=== PATIENT | male | born 1950 | race African-American/Black ===

== ENCOUNTER 2023-06-18 14:07 | Emergency (ER) | payer MEDICARE, SELFPAY ==
--- NOTE | ~2023-06-18 | XR_ITS ---
EXAMINATION: XR chest 1V portable DATE: 06/18/2023 14:44 INDICATION: Chest pain. TECHNIQUE: A single frontal view of the chest was obtained. COMPARISON: None. FINDINGS: There is no pneumonia, pleural effusion, or pneumothorax. The heart size is normal. IMPRESSION: 1. No acute cardiopulmonary disease. Reviewed, dictated and finalized at location E. [facility]
[2023-06-18 14:09] VITALS: BP 150/94; PULSE 56; RESP 17; TEMP 36.7; O2SAT 100
--- NOTE | 2023-06-18 14:17 | ECG_ITS ---
Measurements Intervals [place] Rate: 53 P: 44 IN: 157 QRS: 5 QRSD: 89 T: 26 QT: 470 QTc: 443 Interpretive Statements SINUS BRADYCARDIA VOLTAGE CRITERIA FOR LVH BASELINE WANDER- I, II, AVR, AVL, AVF, V3-V6 BORDERLINE ECG NO PREVIOUS ECG AVAILABLE FOR COMPARISON Electronically Signed On 06-18-2023 14:26:08 GAMBRELER HELPER by Jhony Pearce D.O.
[2023-06-18 14:20] VITALS: PULSE 56
--- NOTE | 2023-06-18 14:25 | ED.GENADULT ---
HPI - General Adult General Chief complaint: Chest Pain <Jose Elias Sheridan PA-C - Last Filed: 06/18/23 15:24> Stated complaint: chest discomfort <Jose Elias Sheridan PA-C - Last Filed: 06/18/23 15:24> Time Seen by Provider: 06/18/23 14:08 <Jose Elias Sheridan PA-C - Last Filed: 06/18/23 15:24> Source: patient <MANISH Zhong Last Filed: 06/18/23 15:24> Mode of arrival: ambulatory <MANISH Zhong Last Filed: 06/18/23 15:24> Limitations: no limitations <MANISH Zhong Last Filed: 06/18/23 15:24> History of Present Illness HPI narrative: This is a 72-year-old male who presents to the ED via EMS from retirement with chief complaint of chest pain. Reports that he was incarcerated about 4 hours ago for stealing steaks. Reports that he started having chest pain and feeling that his blood sugar may be low. Patient reports substance use with history of using IV heroin, fentanyl, smoking cocaine, marijuana and doing ?everything.? Patient reports that he last smoked crack or did cocaine a on of this week, 2 days ago. Today states the pain is in the left chest and comes and goes. Described as a sharp pain. No association with exertion, syncope or vomiting. Denies diaphoresis. Denies any history of heart disease. Patient reports has history of liver disease. Patient reports he was seen another facility yesterday for the symptoms new discharged. He had subsequent improvement of symptoms prior to arriving today. Denies any recent fevers, chills, cough, nausea, vomiting or abdominal pain. Denies back pain, numbness, weakness. <MANISH Zhong Last Filed: 06/18/23 15:24> Review of Systems Review of Systems: All systems as dictated in HPI <MANISH Zhong Last Filed: 06/18/23 15:24> Exam Narrative: GENERAL: Well-appearing, well-nourished, and in no acute distress. HEAD: Normocephalic, atraumatic. EYES: PERRLA and EOMI. Scleral icterus present ENT: Nares clear, no rhinorrhea or epistaxis. Mucous membranes moist. Oropharynx without tonsillar hypertrophy exudate or other lesions. NECK: Supple. No adenopathy or masses. CHEST: No respiratory distress. Clear to auscultation. No wheezes rales or rhonchi HEART: Regular rate and rhythm. No murmur heard. Normal peripheral pulses. ABDOMEN: Soft, nontender, nondistended, normal active bowel sounds. MSK: Normal range of motion. No edema. SKIN: Warm, dry, no rash. NEURO: Alert and oriented x3. No focal deficits. PSYCH: Normal mood and affect. <Jose Elias Sheridan PA-C - Last Filed: 06/18/23 15:24> Course MANAGER NET/PA Physician Supervision I did review initial EKG dated 06/18/2023 at 2:14 p.m.. There was some initial concern for the appearance of multiple ST segments particularly in the precordial leads though equivocal with baseline wander. Ventricular rate is 53, consistent with sinus bradycardia. MA interval 157. QRS 89. QT/QTC 470/453. I did request that a repeat EKG be performed within the next 15 minutes and sent a picture of the original EKG 2 lockstitch waistline joiner on-call Dr. Guadarrama who does concur that this does not have the appearance of a STEMI. Repeat EKG is performed and reviewed which does not demonstrate these findings. Discussed with Jose Elias ([email or web address]). I am later informed that patient left without completing treatment/work up. I did not personally examine the patient. <Diane Quinn MD - Last Filed: 06/18/23 22:34> Vital Signs Vital signs: Vital Signs Temperature 98.0 F 06/18/23 14:09 Pulse Rate 56 L 06/18/23 14:09 Respiratory Rate 17 06/18/23 14:09 Blood Pressure 150/94 H 06/18/23 14:09 Pulse Oximetry 100 06/18/23 14:09 Oxygen Delivery Room Air 06/18/23 14:09 Temperature 98.0 F 06/18/23 14:09 Pulse Rate 56 L 06/18/23 14:20 Respiratory Rate 17 06/18/23 14:09 Blood Pressure 150/94 H 06/18/23 14:09 Pulse Oximetry 100 06/18/23 14:09 Oxygen Delivery Room Air 06/18/23
--- NOTE | 2023-06-18 14:35 | ECG_ITS ---
Measurements Intervals [place] Rate: 57 P: 54 [place]: 162 QRS: 1 QRSD: 90 T: 7 QT: 482 QTc: 470 Interpretive Statements SINUS BRADYCARDIA ATRIAL AND VENTRICULAR PREMATURE COMPLEXES LEFT VENTRICULAR HYPERTROPHY BORDERLINE T WAVE ABNORMALITY- INFERIOR LEADS BASELINE ARTIFACT- AVR, AVL, AVF, V3 BORDERLINE ECG COMPARED TO ECG 06/18/2023 14:14:19 NO SIGNIFICANT CHANGES Electronically Signed On 06-19-2023 9:38:12 CDT by Jhony Pearce D.O.
[2023-06-18 14:50] LABS: Basophils Percent Auto 0.4 % (0.2-1.2); Eosinophils Absolute Auto 0.1 K/mm3 (0-0.3); Eosinophils Percent Auto 0.7 % (0-4.4); Hematocrit 35.5 % (42.0-52.0); Hemoglobin 11.1 g/dL (14.0-18.0); Immature Granulocyte Absolute 0.05 K/mm3 (0.00-0.031); Immature Granulocyte Percent A 0.7 % (0-0.5); Immature Platelet Fraction Pct 13.1 % (0.9-11.2); Lymphocytes Absolute Auto 1.95 K/mm3 (0.9-3.2); Lymphocytes Percent Auto 28.7 % (18.3-44.2); Mean Corpuscular HGB Conc 31.3 g/dl (32-36); Mean Corpuscular Hemoglobin 23.7 pg (26-34); Mean Corpuscular Volume 75.7 fl (80-100); Monocytes Absolute Auto 0.5 K/mm3 (0.1-0.6); Monocytes Percent Auto 7.2 % (2.6-8.5); Neutrophils Absolute Auto 4.2 K/mm3 (1.3-6.7); Neutrophils Percent Auto 62.3 % (45.5-73.1); Platelet Count Result 86 k/mm3 (150-375); Red Blood Count 4.69 M/mm3 (4.6-6.20); Red Cell Distribution Width 15.8 % (11.5-14.5); White Blood Count 6.8 K/mm3 (4.5-10.0)
--- NOTE | 2023-06-18 14:50 | PC.NURSE ---
Vascular commercial credit portfolio manager unable to get IV, was able to get labs. Pt has extensive scarring on arms, hx of IV drug use. Pt states that they usually have to go in my neck . Ultrasound was needed for labs.
[2023-06-18 15:00] LABS: Prothrombin Time 13.4 Seconds (11.1-14.7)
[2023-06-18 15:01] LABS: Partial Thromboplastin Time 28.9 SECONDS (22.3-36.8)
[2023-06-18 15:03] LABS: D Dimer 0.79 ug/mL (<0.48)
--- NOTE | 2023-06-18 15:05 | PC.NURSE ---
Pt off the monitor, found in the hallway fully dressed with coat and hat on walking with walker. States he was heading to the cafeteria. RN told patient that we don't have all of his results yet, so he cannot have anything to eat at this time. Pt walked back to room.
--- NOTE | 2023-06-18 15:10 | PC.NURSE ---
Pt again not in his room. RN searched waiting room, security stated they saw him walk outside. RN met patient out on the sidewalk and pt stated he was trying to find the bus stop. RN informed patient that we would like for him to stay and get checked out for his chest pain. Pt reports he doesn't feel like he needs to stay and is wanting to leave without any further treatment. Pt does not have an IV in place. Security escorted pt to bus stop.
[2023-06-18 15:11] LABS: Alanine Aminotransferase 61 U/L (6-50); Alkaline Phosphatase 57 U/L (38-126); Anion Gap 2 mmol/L (8-16); Aspartate Amino Transferase 112 U/L (17-59); Bilirubin,Total 0.9 mg/dL (0.2-1.3); Blood Urea Nitrogen 17 mg/dL (9-20); Calcium 9.3 mg/dL (8.4-10.2); Carbon Dioxide 29 mmol/L (22-30); Chloride 109 mmol/L (98-107); Estimated Glomerular Filt Rate > 60; Glucose 95 mg/dL (65-110); Potassium 3.8 mmol/L (3.4-5.0); Sodium 140 mmol/L (137-145)
--- NOTE | 2023-06-18 15:15 | PC.NURSE ---
Patient found outside in ED parking lot fully dressed and ambulating with his rollator without difficultly. Patient called for and responded by asking where bus stop is. Patient reporting he is ready to go home and doesn't want further treatment or evaluation. Patient verbalized understanding of risk of leaving AMA and with results pending. Patient persistent about wanting to leave even though he was not up for discharge. Deandre, museum security chief, escorted patient to the bus stop.
[2023-06-18 15:22] LABS: Troponin I < 0.012 ng/mL (0.000-0.034)
[2023-06-18 15:46] LABS: Ovalocytes 1+ (NORMAL); Platelet Estimate Decreased (Adequate); Schistocytes None Seen (NORMAL); Target Cells 1+ (NORMAL)
== END 2023-06-18 15:15 | disposition left against medical advice (07) ==
PROVIDERS: Emergency Provider Physician Assistant
DX: R07.9 Chest pain, unspecified (principal)
CPT/HCPCS: 36415; 71045; 80053; 84484; 85025; 85055; 85380; 85610; 85730; 93005; 99284